=== PATIENT | female | born 1960 | race Caucasian/White ===

== ENCOUNTER 2016-12-04 09:24 | Inpatient (IN) ==
--- NOTE | 2016-12-04 09:27 | Emergency Department Note ---
Disposition Clinical Impression: CVA (cerebral vascular accident), Left-sided weakness Disposition: Admitted As Inpatient Condition: Good General Adult HPI - General Chief complaint: ED Neuro Symptoms/Deficit Stated complaint: neuro Time Seen by Provider: 12/04/16 09:26 - Related Data Home Medications Medication Instructions Recorded Confirmed Levothyroxine Sodium [Levo-T] 175 mcg PO DAILY 12/04/16 12/04/16 Losartan Potassium [Cozaar] 100 mg PO DAILY 12/04/16 12/04/16 lamoTRIgine [Lamictal] 100 mg PO QAM 12/04/16 12/04/16 lamoTRIgine [Lamictal] 200 mg PO HS 12/04/16 12/04/16 traZODone [TraZODone] 50 mg PO HS 12/04/16 12/04/16 Allergies Allergy/AdvReac Type Severity Reaction Status Date / Time No Known Allergies Allergy Verified 11/14/16 11:01 Past Medical History - Past Medical History Medical history: Reports: hypertension, thyroid disease Psychiatric history: Reports: anxiety, bipolar, depression - Social History Smoking Status: Current every day smoker Smokeless Tobacco Status: No Alcohol use: Reports: none Drug use: Reports: none Course Vital Signs Temperature 98.3 F 12/04/16 09:26 Pulse Rate 65 12/04/16 09:26 Respiratory Rate 18 12/04/16 09:26 Blood Pressure 136/114 12/04/16 09:26 O2 Sat by Pulse Oximetry 94 12/04/16 09:26 Temperature 98.3 F 12/04/16 15:03 Pulse Rate 65 12/04/16 15:03 Respiratory Rate 16 12/04/16 15:03 Blood Pressure 99/82 12/04/16 15:03 O2 Sat by Pulse Oximetry 98 12/04/16 17:43 Oxygen Delivery Oxygen Delivery Nasal Cannula Medical Decision Making - Lab Data Result diagrams: 12/04/16 09:47 12/04/16 09:47 Lab Results 12/04/16 12/04/16 12/04/16 Range/Units 09:29 09:47 09:47 WBC 8.1 (4.3-11.1) K/mcL RBC 4.49 (3.82-4.97) M/mcL Hgb 14.1 (11.5-15.4) g/dL Hct 43.5 (35.3-44.9) % MCV 96.9 (83.0-100.0) fL MCH 31.4 (28.0-33.3) pg MCHC 32.4 (31.6-35.5) g/dL RDW 12.2 (11.5-14.5) % Plt Count 292 (140-400) K/mcL MPV 9.9 (9.4-12.4) fL Immature Gran % 0.4 (0-4) % Seg Neutrophils % 61.2 % Lymphocytes % 31.3 % Monocytes % 5.2 % Eosinophils % 1.5 % Basophils % 0.4 % Neutrophils # 5.0 (1.6-8.9) K/mcL Lymphocytes # 2.5 (0.6-4.6) K/mcL Monocytes # 0.4 (0.0-1.3) K/mcL Eosinophils # 0.1 (0.0-0.6) K/mcL Basophils # 0.0 (0.0-0.2) K/mcL Sodium 138 (136-145) mEq/L Potassium 4.1 (3.5-4.5) mEq/L Chloride 105 (98-109) mEq/L Carbon Dioxide 27 (19-29) mEq/L BUN 7 (7-20) mg/dL Creatinine 0.99 (0.57-1.11) mg/dL Est GFR ( Amer) > 60 (> 60) Est GFR (Non-Af Amer) 58 L (> 60) BUN/Creatinine Ratio 7 (6-26) Glucose 97 (70-99) mg/dL POC Glucose 107 H (58-89) Calculated Osmolality 284 (280-300) Calcium 9.4 (8.6-10.8) mg/dL Troponin I (0-0.03) ng/mL 12/04/16 Range/Units 09:47 WBC (4.3-11.1) K/mcL RBC (3.82-4.97) M/mcL Hgb (11.5-15.4) g/dL Hct (35.3-44.9) % MCV (83.0-100.0) fL MCH (28.0-33.3) pg MCHC (31.6-35.5) g/dL RDW (11.5-14.5) % Plt Count (140-400) K/mcL MPV (9.4-12.4) fL Immature Gran % (0-4) % Seg Neutrophils % % Lymphocytes % % Monocytes % % Eosinophils % % Basophils % % Neutrophils # (1.6-8.9) K/mcL Lymphocytes # (0.6-4.6) K/mcL Monocytes # (0.0-1.3) K/mcL Eosinophils # (0.0-0.6) K/mcL Basophils # (0.0-0.2) K/mcL Sodium (136-145) mEq/L Potassium (3.5-4.5) mEq/L Chloride (98-109) mEq/L Carbon Dioxide (19-29) mEq/L BUN (7-20) mg/dL Creatinine (0.57-1.11) mg/dL Est GFR ( Amer) (> 60) Est GFR (Non-Af Amer) (> 60) BUN/Creatinine Ratio (6-26) Glucose (70-99) mg/dL POC Glucose (58-89) Calculated Osmolality (280-300) Calcium (8.6-10.8) mg/dL Troponin I 0.01 (0-0.03) ng/mL Attestation Statement - Attestation Attestation: I examined this patient and my medical decision-making was reviewed with the VEHICLE TRIMMER/PA/Advanced Practice Nurse/Resident Physician. I agree with the documented findings, disposition and treatment plan as described except to the extent set forth below. [id number] time provided Patient arrives by EMS from home. She states she began developing weakness approximately 10:00 AM yesterday which is 23 hours prior to arrival. She has fallen multiple times. She feels as if her face is droopy. The patient does have a noticeable left-sided facial droop and left-sided motor weakness on exam. Stroke alert not activated due to prolonged onset of symptoms
--- NOTE | 2016-12-04 09:53 | Emergency Department Note ---
Disposition Clinical Impression: Left-sided weakness CVA (cerebral vascular accident) Qualifiers: CVA mechanism: other Qualified Code(s): I63.8 - Other cerebral infarction Disposition: Admitted As Inpatient Condition: Good Forms: ED Satisfaction Letter General Adult HPI - General Chief complaint: ED Neuro Symptoms/Deficit Stated complaint: neuro Time Seen by Provider: 12/04/16 09:26 Source: patient Mode of arrival: EMS Limitations: no limitations Nursing Notes Reviewed: Yes Vital Signs Reviewed: Yes - History of Present Illness HPI Narrative: 56-year-old female who reports sudden onset of left-sided weakness and multiple falls beginning at 10 AM yesterday morning. She has no history of stroke or other neurologic conditions. She reports at least 3 falls onto her left side due to weakness in her left. She admits to one of those times hitting her head. Her main complaint is the left-sided weakness and also chronic left- sided hip pain. The hip pain is worse after the fall. She does have a diagnosis of chronic bursitis of the left hip. Her other medical problems include bipolar, hypothyroidism, asthma. She takes lamotrigine, Synthroid, losartan, trazodone. She is not on any anticoagulants or antiplatelet agents. She denies any cardiac history or palpitations. She does admit to a mild headache after falling and hitting her head a couple of hours ago. She refused to come to the emergency department previously but her daughter made her come Location: left, lower extremity Radiation: non-radiation Pain Severity: moderate Pain Scale: 8 Consistency: constant Improves with: nothing Worsens with: nothing Associated symptoms: Reports: denies other symptoms - Related Data Home Medications Medication Instructions Recorded Confirmed Levothyroxine Sodium [Levo-T] 175 mcg PO DAILY 12/04/16 12/04/16 Losartan Potassium [Cozaar] 100 mg PO DAILY 12/04/16 12/04/16 lamoTRIgine [Lamictal] 100 mg PO QA 12/04/16 12/04/16 lamoTRIgine [Lamictal] 200 mg PO HS 12/04/16 12/04/16 traZODone [TraZODone] 50 mg PO HS 12/04/16 12/04/16 Allergies Allergy/AdvReac Type Severity Reaction Status Date / Time No Known Allergies Allergy Verified 11/14/16 11:01 All systems ED: reviewed and negative except as stated. Constitutional: Denies: fever Eyes: Denies: vision change ENT ED: Denies: throat pain Cardiovascular: Denies: chest pain Respiratory: Denies: cough, dyspnea Gastrointestinal: Denies: abdominal pain Musculoskeletal: Denies: neck pain Integumentary: Denies: rash Neurological: Reports: headache Past Medical History - Past Medical History Medical history: Reports: hypertension, thyroid disease Psychiatric history: Reports: anxiety, bipolar, depression - Social History Smoking Status: Current every day smoker Smokeless Tobacco Status: No Alcohol use: Reports: none Drug use: Reports: none Physical Exam - General General appearance: alert, in no apparent distress - Head Head exam: atraumatic - Eye Eye exam: Present: normal appearance - ENT ENT exam: normal exam - Neck Neck exam: Present: normal inspection - Chest Chest inspection: Present: normal inspection - Respiratory Respiratory exam: Present: normal lung sounds bilaterally. Absent: respiratory distress - Cardiovascular Cardiovascular exam: Present: regular rate, normal rhythm - Abdominal Exam Abdominal exam: Present: soft, Non-Tender - Extremities Exam Extremities exam: Present: normal inspection - Neurological Exam Neurological exam: Present: alert, oriented X3, other (Left-sided facial droop with complete left-sided paresthesias. Left upper and left lower extremity both have significant weakness with minimal movement against gravity. No symptoms on the right side. No coughing or choking.) - Skin Skin exam: Present: warm, dry Course Course Narrative: She has a NIH of 6 on exam. With significant left-sided weakness and left- sided facial droop. I concern for a stroke. We will do a stroke workup in addition I will do a left hip radiograph due to worsening of chronic pain and left hip after a fall. She is otherwise well appearing and in no distress. She is able to handle her own secretions without any changes in her mentation. Accu-Cheks within normal range. Vital signs are otherwise stable. Concern for left basal ganglia acute infarction. Will admit and give asa Vital Signs Temperature 98.3 F 12/04/16 09:26 Pulse Rate 65 12/04/16 09:26 Respiratory Rate 18 12/04/16 09:26 Blood Pressure 136/114 12/04/16 09:26 O2 Sat by Pulse Oximetry 94 12/04/16 09:26 Temperature 98.3 F 12/04/16 09:26 Pulse Rate 65 12/04/16 09:26 Respiratory Rate 18 12/04/16 09:26 Blood Pressure 136/114 12/04/16 09:26 O2 Sat by Pulse Oximetry 94 12/04/16 09:26 Oxygen Delivery Oxygen Delivery Room Air Medical Decision Making - Medical Records Medical records reviewed: Yes I reviewed the patient's medical records. - Lab Data Lab results reviewed: Yes I reviewed the patient's lab results. Result diagrams: 12/04/16 09:47 Lab Results 12/04/16 12/04/16 Range/Units 09:29 09:47 WBC 8.1 (4.3-11.1) K/mcL RBC 4.49 (3.82-4.97) M/mcL Hgb 14.1 (11.5-15.4) g/dL Hct 43.5 (35.3-44.9) % MCV 96.9 (83.0-100.0) fL MCH 31.4 (28.0-33.3) pg MCHC 32.4 (31.6-35.5) g/dL RDW 12.2 (11.5-14.5) % Plt Count 292 (140-400) K/mcL MPV 9.9 (9.4-12.4) fL Immature Gran % 0.4 (0-4) % Seg Neutrophils % 61.2 % Lymphocytes % 31.3 % Monocytes % 5.2 % Eosinophils % 1.5 % Basophils % 0.4 % Neutrophils # 5.0 (1.6-8.9) K/mcL Lymphocytes # 2.5 (0.6-4.6) K/mcL Monocytes # 0.4 (0.0-1.3) K/mcL Eosinophils # 0.1 (0.0-0.6) K/mcL Basophils # 0.0 (0.0-0.2) K/mcL POC Glucose 107 H (58-89) - Radiology Data Radiology results reviewed: Yes I reviewed the patient's radiology results. - EKG Data EKG #1 EKG attestation: Yes I reviewed and interpreted this EKG. EKG shows normal: sinus rhythm Rate: normal Fenton/QRS: normal When compared to previous EKG there are: no significant changes Interpretation: no acute changes
[2016-12-04 10:16] LABS: Basophils % 0.4 %; Eosinophils # 0.1 K/mcL (0.0-0.6); Eosinophils % 1.5 %; Hematocrit 43.5 % (35.3-44.9); Hemoglobin 14.1 g/dL (11.5-15.4); Immature Granulocytes % 0.4 % (0-4); Lymphocytes # 2.5 K/mcL (0.6-4.6); Lymphocytes % 31.3 %; Mean Corpuscular HGB Conc 32.4 g/dL (31.6-35.5); Mean Corpuscular Hemoglobin 31.4 pg (28.0-33.3); Mean Corpuscular Volume 96.9 fL (83.0-100.0); Mean Platelet Volume 9.9 fL (9.4-12.4); Monocytes # 0.4 K/mcL (0.0-1.3); Monocytes % 5.2 %; Platelet Count 292 K/mcL (140-400); Red Blood Count 4.49 M/mcL (3.82-4.97); Red Cell Distribution Width 12.2 % (11.5-14.5); Segmented Neutrophils % 61.2 %
[2016-12-04] MEDS ORDERED: Aspirin 325 MG TABLET PO ONE (10:21)
[2016-12-04 10:28] LABS: BUN/Creatinine Ratio 7 (6-26); Blood Urea Nitrogen 7 mg/dL (7-20); Calcium 9.4 mg/dL (8.6-10.8); Carbon Dioxide 27 mEq/L (19-29); Chloride 105 mEq/L (98-109); Glucose 97 mg/dL (70-99); Osmolality,Calculated 284 (280-300); Potassium 4.1 mEq/L (3.5-4.5); Sodium 138 mEq/L (136-145); eGFR For African Americans > 60 (> 60); eGFR For Non-African Americans 58 (> 60)
[2016-12-04] MEDS ORDERED: Naloxone 0.4 MG/ML INJ IVP PRN (11:54)
--- NOTE | 2016-12-04 12:32 | Internal Med History&Physical ---
Date of Encounter: 12/04/16 Time of Encounter: 11:00 Assessment and Plan (1) CVA (cerebral vascular accident) Current visit: Yes Status: Acute 1 7 ounces of left-sided weakness and frequent falls starting yesterday at approximately 10 AM. Presented to the ER with obvious left-sided facial droop as well as left-sided upper/lower extremity weakness. CT of head did indicate possible acute subacute infarct of right Thalmus. Patient was given aspirin rectally, she failed her swallow evaluation. She is protecting her airway at this time. 2 we will obtain MRI/MRA of head and brain and neck with and without contrast 3 we will obtain carotid Dopplers 4 consult to neurology-spoke with Dr. Acosta who will see patient upon consult 5 continue with aspirin we will obtain lipid profile, as well as A1c. Initiate statin once patient is able to take orals 6 consult PT and OT speech 7 fall precautions 8 aspiration precautions Qualifiers: CVA mechanism: other Qualified Code(s): I63.8 - Other cerebral infarction (2) HTN (hypertension) Current visit: No Status: Chronic 1 presently controlled and we will hold antihypertensives for now due to patient 's nothing by mouth we will allow for permissive hypertension. Qualifiers: Hypertension type: essential hypertension Qualified Code(s): I10 - Essential (primary) hypertension (3) Bipolar 1 disorder Current visit: No Status: Chronic 1 we will resume bipolar medication, Lamictal and Prozac once cleared by speech therapy (4) DVT prophylaxis Current visit: Yes Status: Acute SCDs for now (5) Tobacco abuse Current visit: Yes Status: Chronic 1 encourage patient to stop smoking she voiced that she did not want to quit- nicotine patch for now Internal Medicine - H&P: HPI Chief complaint: Left-sided weakness frequent falls Admitted From: Emergency Dept Plans for Post Hospital Care: Home History of present illness: Ms. Varela is a 56 year old female past medical history of hypertension asthma thyroid disease bipolar DVT. According to family and patient, she has been experiencing frequent falls since yesterday morning at approximately 10 AM. Patient has been experiencing left-sided lower extremity weakness unable to stand feeling of dizziness in the room spinning when standing. She has had multiple falls where she would be sitting and fall forward without any attempts to break her fall. Patient admits that her left side had felt strange all day yesterday. Family have encouraged her to go to the emergency room at that time however she declined At approximately 4 AM today patient got up and was unable to support her weight and fell onto her left side. She does admit to some lightheadedness and dizziness. As the morning progressed she continued to experience left-sided weakness, she had a facial droop and frequent falls. She did have a fall in which she hit her head family encouraged her to go to the emergency room for evaluation. Upon presentation to the ER patient did have an obvious left-sided facial droop as well as left-sided upper arm weakness and lower extremity weakness. NIH score was 6. CT of head was obtained which did show low attenuation involving the anterior margin of the right thalamus possibly representing acute or subacute infarct. Patient was given aspirin. She has been admitted for further workup and evaluation. Presently the patient is alert appropriate she does follow simple commands. She has a left-sided facial droop. She is able to maintain her airway She is unable to lift her left arm without assistance left lower extremity weak 1/5 strength. Sensation is intact. She does have some difficulty recalling events of this morning. The family states that patient had an episode approximately 2 months ago that was similar she was taken to an outside facility which at that time her symptoms had resolved. However the family states that she continued to have issues with memory and recall after the episode Her lung sounds are clear heart sounds are regular S1-S2 with no rubs clicks gallops murmurs noted abdomen soft and nontender no lower extremity edema Presently she appears hemodynamically stable at this time I review this case with Dr. Garcia who agrees with plan Past Med Surg Social Fam HX - Past Medical History Medical history: hypertension, thyroid disease Psychiatric history: anxiety, bipolar, depression - Social History Smoking Status: Current every day smoker Smokeless Tobacco Status: No Alcohol use: none Drug use: none - Family History Mother Hx Family Cancer: Yes Internal Medicine - H&P: Meds Levothyroxine Sodium [Levo-T] 175 mcg PO DAILY 12/04/16 [History] Losartan Potassium [Cozaar] 100 mg PO DAILY 12/04/16 [History] lamoTRIgine [Lamictal] 100 mg PO QAM 12/04/16 [History] lamoTRIgine [Lamictal] 200 mg PO HS 12/04/16 [History] traZODone [TraZODone] 50 mg PO HS 12/04/16 [History] Allergies No Known Allergies Allergy (Verified 11/14/16 11:01) All Systems PM: A 10-system review of systems was performed and is negative for pertinent findings except as documented above in the HPI. - Constitutional Constitutional: weakness, no chills, no fever(s), no night sweats - EENT Nose, mouth and throat: no dysphagia, no nasal discharge, no neck pain, no sore throat - Cardiovascular Cardiovascular ROS IM: no chest pain, no diaphoresis, no dyspnea, no lightheadedness, no palpitations, no syncope - Respiratory Respiratory: no cough, no dyspnea, no wheezing, no excessive phlegm production - Gastrointestinal Gastrointestinal: no abdominal pain, no diarrhea, no hematemesis, no hematochezia, no melena, no nausea, no vomiting - Genitourinary Genitourinary: no change in urinary stream, no dysuria, no flank pain, no hematuria - Musculoskeletal Musculoskeletal ROS IM: no numbness, no tingling - Integumentary Integumentary IM: no rash, no unusual bruising - Neurological Neurological ROS: abnormal gait, dizziness, frequent falls, weakness - Hematologic/Lymphatic Hematologic/Lymphatic: no easy bruising - Constitutional Vitals: Temp Pulse Resp BP Pulse Ox 98.3 F 56 16 115/59 91 12/04/16 09:26 12/04/16 10:32 12/04/16 10:32 12/04/16 10:32 12/04/16 10:32 General appearance: Present: A&O X 3, answers questions appropriately - Head Head exam: Present: atraumatic, normocephalic - Eye Eye exam: Present: PERRL, conjuntiva pink, sclera anicteric Pupils: Present: PERRL - Neck Neck exam general surgery: Present: supple, trachea midline. Absent: lymphadenopathy - Respiratory Respiratory exam: Present: CTAB. Absent: accessory muscle use, rales, rhonchi, wheezes - Cardiovascular Cardiovascular exam: Present: RRR, +S1, +S2. Absent: diastolic murmur, gallop, rubs, systolic murmur - GI/Abdominal GI/Abdominal exam: Present: normal bowel sounds, soft, no peritoneal signs. Absent: distended, tenderness - Extremities Exam Extremities exam: Present: warm, radial pulses palpable and symetrical. Absent : calf tenderness, cyanotic, pedal edema - Neurological Exam Neurological exam: Present: alert, CN II-XII intact, oriented X3, facial droop. Absent: pronater drift, speech deficit Additional comments: Left sided weakness - Skin Skin exam: Present: dry, intact Internal Med - H&P Results - Labs CBC & Chem 7: 12/04/16 09:47 12/04/16 09:47 - EKG Data EKG shows normal: sinus rhythm Rate: bradycardia - Diagnostic Studies Other Images Additional comments: Chest X-Ray 12/04/16 09:37 IMPRESSION: No acute cardiopulmonary process identified. D/ / Bryce Villalobos MD / Bryce Villalobos MD Interpreting Provider: Bryce Villalobos MD Head CT 12/04/16 09:37 IMPRESSION: 1. Focal area of low attenuation involving the anterior margin of the right thalamus which may represent an acute to subacute infarct. These findings were discussed with Dr Palm at 10:16 a.m. 12/04/2016. I would recommend MRI for further evaluation. 2. Chronic small vessel ischemic disease with old right occipital lobe infarct. D/ / Mitchell Cruz MD / Mitchell Cruz MD Interpreting Provider: Mitchell Cruz MD Pelvis X-Ray 12/04/16 09:39 IMPRESSION: No acute osseous abnormality. D/ / 12/04/2016 10:52:13 Ray Parsons MD / Merari Chawla Interpreting Provider: Ray Parsons MD
[2016-12-04] MEDS: Nicotine 21 MG PATCH.TD24 TD SCH (18:05)
--- NOTE | 2016-12-04 19:57 | Neurology - Consult Note ---
Date of Encounter: 12/04/16 Time of Encounter: 19:51 Assessment and Plan (1) CVA (cerebral vascular accident) Current Visit: Yes Status: Acute patient developed acute cerebral infarct involving multiple arterial distribution on both size of the brain, concerning for embolic phenomenon. this is a young patient and she does have history of HTN and obesity and VLAD but no past history of atrial fibrillation or other cardiac diseases that can be causing embolic stroke. Will need to start her on Heparin drip, stroke protocol, no bolus, target PTT 60 -90, while stroke work up is being completed. Will need TOÑO due to findings of positive embolic stroke. Will do hypercoagulable state work up as well. PT/OT, DVT prophylaxis, Contineu Aspirin 300mg daily. Qualifiers: CVA mechanism: embolism Precerebral and cerebral artery: unspecified cerebral artery Qualified Code(s): I63.40 - Cerebral infarction due to embolism of unspecified cerebral artery History of Present Illness Chief complaint: left sided weakness HPI: Ms. Varela is a 56 year old female with PMH significant for HTN, bipolar disorder in remission, hypothryoidism and obesity who developed acute onset of left sided weakness yesterday at 10am. She did not seek medical attention until today. Since yesterday, she tried to get up and had two falls, landed on the left hip and caused some hip pain. No speech difficulty. Mentioned that about 1-2 months ago she developed uncontrollable arm lasting few hours in duration. She went to outside hospital and they discharged her home. MR/MR head/brain wo con IMPRESSION: 1. Acute ischemic infarcts involving the right thalamus, right splenium of the corpus callosum, and mesial parietal occipital cortex. 2. No intracranial hemorrhage or mass effect. 3. Marked attenuation of the mid to distal posterior cerebral arteries may reflect high-grade stenosis or acute thrombosis. 4. Mild bilateral proximal internal carotid artery stenosis. 5. No vertebral artery stenosis. 6. Remote lacunar infarcts in the right thalamus, body of the corpus callosum, and right occipital lobe. 7. Bilateral mastoid effusions. Review of the images showed multiple small acute infarct involving not only above mentioned territory but also left occipital region and left frontal cortex as well. Will notify radiology for possible correction. Past Med Surg Social Fam HX - Past Medical History Medical history: hypertension, thyroid disease Psychiatric history: anxiety, bipolar, depression - Social History Smoking Status: Current every day smoker Smokeless Tobacco Status: No Alcohol use: none Drug use: none - Family History Mother Hx Family Cancer: Yes Medications and Allergies Levothyroxine Sodium [Levo-T] 175 mcg PO DAILY 12/04/16 [History] Losartan Potassium [Cozaar] 100 mg PO DAILY 12/04/16 [History] lamoTRIgine [Lamictal] 100 mg PO QAM 12/04/16 [History] lamoTRIgine [Lamictal] 200 mg PO HS 12/04/16 [History] traZODone [TraZODone] 50 mg PO HS 12/04/16 [History] Allergies No Known Allergies Allergy (Verified 11/14/16 11:01) All Systems: A 10-system review of systems was performed and is negative for pertinent findings except as documented above in the HPI. Physical Examination - Vital Signs Vital Signs: Initial Vital Signs Temp Pulse Resp BP Pulse Ox 98.3 F 65 18 136/114 94 12/04/16 09:26 12/04/16 09:26 12/04/16 09:26 12/04/16 09:26 12/04/16 09:26 - Constitutional General appearance: comfortable - Neurologic Sensorimotor examination: other (Grossly intact) Motor examination - right side: 5/5: deltoids, biceps, triceps, wrist flexion, wrist extension, mental health associate, hip flexors, tibialis Anterior, quadriceps, toe extension (EHL), plantarflexion Motor examination - left side: 4/5: deltoids, biceps, triceps, wrist flexion, wrist extension, hip flexors, mental health associate, quadriceps, tibialis Anterior, toe extension (EHL), plantarflexion Detailed sensory examination: other (Grossly intact) Posture: other (None) Reflex and gait examination: other (Reflexes reduced to left side both upper and lower extremites) Mental Status Examination: awake, alert, oriented to person, oriented to place, oriented to time, follows commands appropriately, answers questions appropriately, no agnosia, no aphasia, no aproxia Results - Laboratory Findings CBC and BMP: 12/04/16 09:47 12/04/16 09:47 Abnormal lab findings: Abnormal lab results Est GFR (Non-Af Amer) 58 (> 60) L 12/04/16 09:47 POC Glucose 107 (58-89) H 12/04/16 09:29 Consult Discharge Plan - Plan Referrals: Alton Sellers MD [Primary Care Provider] -
[2016-12-04] MEDS ORDERED: *HR* Heparin 5,000 UNIT/ML VIAL IVP PRN ×2 (20:56)
[2016-12-04 21:31] LABS: Hematocrit 44.5 % (35.3-44.9); Hemoglobin 14.4 g/dL (11.5-15.4); Mean Corpuscular HGB Conc 32.4 g/dL (31.6-35.5); Mean Corpuscular Hemoglobin 31.4 pg (28.0-33.3); Mean Corpuscular Volume 97.2 fL (83.0-100.0); Mean Platelet Volume 9.6 fL (9.4-12.4); Platelet Count 262 K/mcL (140-400); Red Blood Count 4.58 M/mcL (3.82-4.97)
[2016-12-04 21:33] LABS: INR 1.1; Prothrombin Time 11.4 Seconds (9.4-12.1)
[2016-12-04 21:36] LABS: Activated Partial Thrombo Time 30.2 Seconds (26.0-36.0)
[2016-12-04] MEDS: Heparin 25,000 UNIT/500 ML D5W 25,000 UNIT/500 ML MLS IVC SCH (22:25)
[2016-12-04] MEDS: lamoTRIgine 100 MG TABLET PO SCH (23:27)
[2016-12-05] MEDS ORDERED: *HR* Morphine 2 MG/ML SYRINGE IVP PRN (00:45)
[2016-12-05] MEDS: *HR* HYDROcodone/Acet 5/325 mg TABLET PO PRN ×3 (01:07→20:05)
[2016-12-05 06:29] LABS: Basophils # 0.1 K/mcL (0.0-0.2); Basophils % 0.5 %; Eosinophils # 0.1 K/mcL (0.0-0.6); Eosinophils % 1.1 %; Hematocrit 43.2 % (35.3-44.9); Hemoglobin 14.2 g/dL (11.5-15.4); Immature Granulocytes % 0.4 % (0-4); Lymphocytes # 2.9 K/mcL (0.6-4.6); Lymphocytes % 29.5 %; Mean Corpuscular HGB Conc 32.9 g/dL (31.6-35.5); Mean Corpuscular Volume 97.3 fL (83.0-100.0); Mean Platelet Volume 10.5 fL (9.4-12.4); Monocytes # 0.4 K/mcL (0.0-1.3); Monocytes % 4.4 %; Neutrophils # 6.2 K/mcL (1.6-8.9); Platelet Count 263 K/mcL (140-400); Red Blood Count 4.44 M/mcL (3.82-4.97); Segmented Neutrophils % 64.1 %
[2016-12-05 06:34] LABS: BUN/Creatinine Ratio 8 (6-26); Blood Urea Nitrogen 7 mg/dL (7-20); Calcium 9.3 mg/dL (8.6-10.8); Carbon Dioxide 26 mEq/L (19-29); Chloride 105 mEq/L (98-109); Chol/HDL Ratio 7.1 (0-4.9); Cholesterol 214 mg/dL (< 200); Glucose 93 mg/dL (70-99); HDL Cholesterol 30 mg/dL (40-59); LDL Cholesterol,Calculated 149 mg/dL (0-99); Osmolality,Calculated 286 (280-300); Potassium 3.9 mEq/L (3.5-4.5); Sodium 139 mEq/L (136-145); Triglycerides 175 mg/dL (< 150); eGFR For African Americans > 60 (> 60); eGFR For Non-African Americans > 60 (> 60)
[2016-12-05 06:45] LABS: Hemoglobin A1C 4.9 %
[2016-12-05] MEDS ORDERED: Pantoprazole 40 MG VIAL IVP SCH (09:00)
--- NOTE | 2016-12-05 09:55 | Event Note ---
Date of Encounter: 12/04/16 Time of Encounter: 21:00 Dr Johansen notified me that Dr Mendoza had seen patient and advised that patient be initiated Heparin drip dt concern for embolic phenomenon. He also request cardiology consult . Heparin started with no bolus goal INR 60-90 continue stroke protocol. Reviewed with DR Johansen as well as pharmacy concerning heparin INR goal.
--- NOTE | 2016-12-05 12:00 | Electrocardiograph Report ---
[place] [id number] Test Date: 2016-12-04 Pat Name: Pete Varela Department: 102 Room: 2NE22 Gender: F Pacs Administrator: Hai : 1960 Requested By: Jamey Membreno Order Number: [id number] Reading MD: Lev Weeks MD Measurements Intervals [place] Rate: 57 P: 29 [place]: 168 QRS: 38 QRSD: 98 T: 26 QT: 422 QTc: 417 Interpretive Statements SINUS BRADYCARDIA Electronically Signed On 12-05-2016 11:58:52 EDT by Lev Weeks MD
--- NOTE | 2016-12-05 12:57 | Neurology Progress Note ---
Date of Encounter: 12/05/16 Time of Encounter: 12:55 Assessment and Plan (1) CVA (cerebral vascular accident) Current Visit: Yes Status: Acute Await stroke work up including TOÑO via cardiology, telemetry, DTV prophylaxis. Continue Aspirin 300mg daily. The presence of mid to distal posterior cerebral artery stenosis or occlusion is of unclear clinical significance and is likely unrelated to current stroke incidence. If TOÑO returns negative for source of emboli then patient may benefit from residential rhythm monitoring. Will defer to cardiology for further recommendation in that regard. Qualifiers: CVA mechanism: embolism Precerebral and cerebral artery: unspecified cerebral artery Qualified Code(s): I63.40 - Cerebral infarction due to embolism of unspecified cerebral artery Subjective Principal diagnosis: CVA Interval history: Patient seen and examined, she is feeling a little better in terms of her left sided weakness, Wide awake and feeling hungry and refuses what recommended by swallow therapist. Is on Heparin drip per stroke protocol due to findings of embolic stroke. No new neurological complaints Objective - Constitutional Vitals: Temp Pulse Resp BP Pulse Ox 98.7 F 67 16 117/83 96 12/05/16 11:50 12/05/16 11:50 12/05/16 11:50 12/05/16 11:50 12/05/16 11:50 - Neurological Exam Sensorimotor examination: Present: other (Grossly intact) Motor Examination: Present: other (Mild weakness to the left arm and leg) Motor examination - right side: 5/5: deltoids, biceps, triceps, wrist flexion, wrist extension, manager outpatient, hip flexors, tibialis Anterior, quadriceps, toe extension (EHL), plantarflexion Motor examination - left side: 4/5: deltoids, biceps, triceps, wrist flexion, wrist extension, hip flexors, manager outpatient, quadriceps, tibialis Anterior, toe extension (EHL), plantarflexion Sensation intact: Present: other (Grossly intact) Posture: Present: other (None) Reflex and gait examination: other (Reflexes reduced to left side both upper and lower extremites) Reflexes: Biceps: 1+, Triceps: 1+, Brachioradialis: 1+, Patella: 1+, Achilles: 1 + Mental Status Examination: Present: awake, alert, oriented to person, oriented to place, oriented to time, follows commands appropriately, answers questions appropriately, no agnosia, no aphasia, no aproxia Results - Laboratory Findings CBC and BMP: 12/05/16 05:33 12/05/16 05:33 Abnormal lab findings: Abnormal lab results APTT 52.6 Seconds (26.0-36.0) H D 12/05/16 05:33 POC Glucose 107 (58-89) H 12/04/16 09:29 Triglycerides 175 mg/dL (< 150) H 12/05/16 05:33 Cholesterol 214 mg/dL (< 200) H 12/05/16 05:33 LDL Cholesterol, Calc 149 mg/dL (0-99) H 12/05/16 05:33 VLDL Cholesterol, Calc 35 mg/dL (< 31) H 12/05/16 05:33 HDL Cholesterol 30 mg/dL (40-59) L 12/05/16 05:33 Cholesterol/HDL Ratio 7.1 (0-4.9) H 12/05/16 05:33 Consult Discharge Plan - Plan Referrals: Alton Sellers MD [Primary Care Provider] -
[2016-12-05 13:04] LABS: Activated Partial Thrombo Time 172.7 Seconds (26.0-36.0)
[2016-12-05] MEDS: Nicotine 21 MG PATCH.TD24 TD SCH (13:24)
[2016-12-05] MEDS: lamoTRIgine 25 MG TABLET PO SCH (13:28)
[2016-12-05 13:35] LABS: Heparin anti-factor XA UFH 0.93 IU/mL (0.30-0.70)
--- NOTE | 2016-12-05 13:39 | Internal Med Progress Note ---
Date of Encounter: 12/05/16 Time of Encounter: 11:00 - Assessment and plan (1) CVA (cerebral vascular accident) Current Visit: Yes Status: Acute Assessment and plan: Patient presents with acute CVA. MRI reveals multiple areas of infarcts. Case discussed with neurology and cardiology. Neurology recommends transesophageal echocardiogram to determine if there is a cardiac source of emboli due to the multiple was also affected by emboli. The patient did not have a good quality echocardiogram. Cardiology recommended a repeat. Repeat echocardiogram has been ordered. Cardiology consult has been requested. We will follow-up in cardiology request regarding the need for transesophageal echo based on the quality of images on the repeat echocardiogram. Patient has passed swallow eval. Continue aspirin, statin. Physical therapy and occupational therapy recommendations will be followed up. Likely discharge to rehabilitation. Patient is height is due to acute stroke and risk of recurrent stroke and the need for further workup which may include transesophageal echocardiogram to be performed as an inpatient stay. Qualifiers: CVA mechanism: embolism Precerebral and cerebral artery: middle cerebral artery Laterality of affected vessel: right Qualified Code(s): I63.411 - Cerebral infarction due to embolism of right middle cerebral artery (2) Tobacco abuse Current Visit: Yes Status: Chronic Assessment and plan: Patient counseled regarding cessation. However, she is not willing to quit. (3) HTN (hypertension) Current Visit: Yes Status: Chronic Assessment and plan: Allow permissive hypertension due to acute CVA. Qualifiers: Hypertension type: essential hypertension Qualified Code(s): I10 - Essential (primary) hypertension (4) Bipolar 1 disorder Current Visit: No Status: Chronic - Subjective Interval history: Patient states that she has pain in her hip and her back from lying in the bed all day. She wants to be helped out of bed and into the chair. She continues to report weakness in her left arm and left leg. However, she states that the weakness in her left arm has improved. Denies any difficulty swallowing and is asking for some solid food. - Constitutional Vitals: Temp Pulse Resp BP Pulse Ox 98.7 F 67 16 117/83 96 12/05/16 11:50 12/05/16 11:50 12/05/16 11:50 12/05/16 11:50 12/05/16 11:50 General appearance: Present: A&O X 3, answers questions appropriately Exam: Gen.: Lying in bed. No acute distress. Chest: Clear to auscultation bilaterally. No adventitious sounds present. CVS: First and second heart sounds present. No murmurs, rubs or gallops. Abdomen: Soft, nontender, obese. Bowel sounds present. No hepatosplenomegaly. Skin: No decubitus ulcers appreciated. BAR WELDER: Left upper extremity strength 4/5. Left lower extremity strength 3/5. Right upper and lower extremity strength of 5/5. Facial deviation to the right. Internal Medicine: Result - Labs CBC & Chem 7: 12/05/16 05:33 12/05/16 05:33 Labs: Short CBC 12/04/16 12/05/16 Range/Units 21:10 05:33 WBC 8.7 9.8 (4.3-11.1) K/mcL Hgb 14.4 14.2 (11.5-15.4) g/dL Hct 44.5 43.2 (35.3-44.9) % Plt Count 262 263 (140-400) K/mcL Neutrophils # 6.2 (1.6-8.9) K/mcL BMP 12/05/16 05:33 Sodium 139 Potassium 3.9 Chloride 105 Carbon Dioxide 26 BUN 7 Creatinine 0.91 Glucose 93 Calcium 9.3 Cardiac Enzymes 12/04/16 12/04/16 Range/Units 17:20 21:10 Troponin I 0.00 0.00 (0-0.03) ng/mL - ABG Interpretation ABG results: PT/INR, D-dimer PT 11.4 Seconds (9.4-12.1) 12/04/16 21:10 - Impressions Impressions Brain MRI 12/04/16 12:17 IMPRESSION: 1. Acute ischemic infarcts involving the right thalamus, right splenium of the corpus callosum, and mesial parietal occipital cortex. 2. No intracranial hemorrhage or mass effect. 3. Marked attenuation of the mid to distal posterior cerebral arteries may reflect high-grade stenosis or acute thrombosis. 4. Mild bilateral proximal internal carotid artery stenosis. 5. No vertebral artery stenosis. 6. Remote lacunar infarcts in the right thalamus, body of the corpus callosum, and right occipital lobe. 7. Bilateral mastoid effusions. D/ / Raji Diaz MD / Raji Diaz MD Interpreting Provider: Raji Diaz MD Head MRA 12/04/16 12:17 IMPRESSION: 1. Acute ischemic infarcts involving the right thalamus, right splenium of the corpus callosum, and mesial parietal occipital cortex. 2. No intracranial hemorrhage or mass effect. 3. Marked attenuation of the mid to distal posterior cerebral arteries may reflect high-grade stenosis or acute thrombosis. 4. Mild bilateral proximal internal carotid artery stenosis. 5. No vertebral artery stenosis. 6. Remote lacunar infarcts in the right thalamus, body of the corpus callosum, and right occipital lobe. 7. Bilateral mastoid effusions. D/ / Raji Diaz MD / Raji Diaz MD Interpreting Provider: Raji Diaz MD Neck MRA 12/04/16 12:17 IMPRESSION: 1. Acute ischemic infarcts involving the right thalamus, right splenium of the corpus callosum, and mesial parietal occipital cortex. 2. No intracranial hemorrhage or mass effect. 3. Marked attenuation of the mid to distal posterior cerebral arteries may reflect high-grade stenosis or acute thrombosis. 4. Mild bilateral proximal internal carotid artery stenosis. 5. No vertebral artery stenosis. 6. Remote lacunar infarcts in the right thalamus, body of the corpus callosum, and right occipital lobe. 7. Bilateral mastoid effusions. D/ / Raji Diaz MD / Raji Diaz MD Interpreting Provider: Raji Diaz MD Consult Discharge Plan - Plan Referrals: Alton Sellers MD [Primary Care Provider] -
[2016-12-05] MEDS ORDERED: Acetaminophen 325 MG TABLET PO PRN (13:46)
--- NOTE | 2016-12-05 14:29 | Cardiology Consult Note ---
Date of Encounter: 12/05/16 Time of Encounter: 13:30 Assessment and Plan (1) CVA (cerebral vascular accident) Current Visit: Yes Status: Acute Per cardiology: -CVA noted. -Being followed by neurology. -Patient denies syncope, near syncope. -Denies palpitations, fluttering, or heart racing. -Denies history of atrial fibrillation, heart arrythmia. -Echo 12/04/16 with LVEF 55-60%, no evidence of significant valvular dysfunction , all visualized cervantes with normal motion. This study was incomplete due to patient moving around. -I spoke with patient who stated she does not remember moving during echo. Patient states she feels she can complete echo now. -Repeat full echocardiogram ordered per primary service. -ECG sinus bradycardia, -Telemetry reviewed with no evidence of atrial fibrillation/flutter noted. -PLan for TOÑO pending results of repear echocardiogram. -will make patient NPO after midnight. Patient states understanding. Qualifiers: CVA mechanism: embolism Precerebral and cerebral artery: middle cerebral artery Laterality of affected vessel: right Qualified Code(s): I63.411 - Cerebral infarction due to embolism of right middle cerebral artery (2) HTN (hypertension) Current Visit: Yes Status: Chronic Per cardiology: -KNown HTN. -Was on ARB in outpateint setting. -States BPS at home 140s systolic. -Will continue to monitor. Qualifiers: Hypertension type: essential hypertension Qualified Code(s): I10 - Essential (primary) hypertension (3) Tobacco abuse Current Visit: Yes Status: Chronic Per cardiology: -KNown tobacco abuse with greater than 1 pack per day. -I spent 3 minutes reviewing smoking cessation education with patient. Discussion w patient/family: The assessment and plan as outlined above was discussed with the patient and/or family members who expressed understanding and agreement. All questions were answered. Thank you for involving us in the care of your patient. Please call with any questions. Discussed and reviewed with . History of Present Illness Consult date: 12/05/16 Requesting physician: Jamey Membreno Consult reason: multivessel CVA, concern for cardiac emboli, TOÑO Chief complaint: falling, left sided weakness. History of present illness: Ms. Varela is a 56 year old female with a relevant past medical history of HTN , hyperlipidemia, obesity, and smoking. Patient states 2 days ago she was sitting in a chair, when she fell forward and hit the floor. Patient states she did not lose consciousness and did not feel like she was going to pass out. Patient states yesterday, she fell two more times. Patient presented to [facility] after insistence from family. Patient noted to have acute CVA. Cardiology has been consulted. Patient denies history of CVA. Patient denies sycnope or near syncope. Patient denies palpitations, fluttering, or heart racing. Patient states BPs at home 140s systolic. Past Med Surg Social Fam HX - Past Medical History Attestation: Yes The following information was validated with the patient. Source: patient, old records reviewed, obtained from family Medical history: hypertension, thyroid disease Psychiatric history: anxiety, bipolar, depression - Social History Smoking Status: Current every day smoker Smokeless Tobacco Status: No Alcohol use: none Drug use: none - Family History Mother Hx Family Cancer: Yes Medications and Allergies Levothyroxine Sodium [Levo-T] 175 mcg PO DAILY 12/04/16 [History] Losartan Potassium [Cozaar] 100 mg PO DAILY 12/04/16 [History] lamoTRIgine [Lamictal] 100 mg PO QAM 12/04/16 [History] lamoTRIgine [Lamictal] 200 mg PO HS 12/04/16 [History] traZODone [TraZODone] 50 mg PO HS 12/04/16 [History] Allergies No Known Allergies Allergy (Verified 11/14/16 11:01) All Systems Review: A 10-system review of systems was performed and is negative for pertinent findings except as documented above in the HPI. - Constitutional Constitutional: frequent falls - Cardiovascular Cardiovascular: as per HPI Physical Examination Vital Signs, Last 4 Hours Temp Pulse Resp BP Pulse Ox 12/05/16 11:50 98.7 F 67 16 117/83 96 General: Conversant, No Apparent Distress HEENT: Atraumatic, Normocephaly, Mucus Membranes Moist Neck: No JVD, Normal carotid pulses Cardiac: Reg Rate and Rhythm, Normal S1 and S2, No Murmur Lungs: Normal Breath Sounds, No Wheeze, Rales, Rhonchi Neuro: Alert and responsive, No focal deficits noted Abdomen: Soft, Non-Tender Skin: No rashes noted on visualized skin Musculoskeletal: No Chest Wall Tenderness Extremities: No Clubbing, No Cyanosis, No Edema, Normal Pulses, Other (Left sided weakness noted. ) Results 12/05/16 05:33 12/05/16 05:33 Lab Results Impressions Pelvis X-Ray 12/04/16 09:39 IMPRESSION: No acute osseous abnormality. D/ / 12/04/2016 10:52:13 Ray Parsons MD / Merari Chawla Interpreting Provider: Ray Parsons MD Brain MRI 12/04/16 12:17 IMPRESSION: 1. Acute ischemic infarcts involving the right thalamus, right splenium of the corpus callosum, and mesial parietal occipital cortex. 2. No intracranial hemorrhage or mass effect. 3. Marked attenuation of the mid to distal posterior cerebral arteries may reflect high-grade stenosis or acute thrombosis. 4. Mild bilateral proximal internal carotid artery stenosis. 5. No vertebral artery stenosis. 6. Remote lacunar infarcts in the right thalamus, body of the corpus callosum, and right occipital lobe. 7. Bilateral mastoid effusions. D/ / Raji Diaz MD / Raji Diaz MD Interpreting Provider: Raji Diaz MD Head MRA 12/04/16 12:17 IMPRESSION: 1. Acute ischemic infarcts involving the right thalamus, right splenium of the corpus callosum, and mesial parietal occipital cortex. 2. No intracranial hemorrhage or mass effect. 3. Marked attenuation of the mid to distal posterior cerebral arteries may reflect high-grade stenosis or acute thrombosis. 4. Mild bilateral proximal internal carotid artery stenosis. 5. No vertebral artery stenosis. 6. Remote lacunar infarcts in the right thalamus, body of the corpus callosum, and right occipital lobe. 7. Bilateral mastoid effusions. D/ / Raji Diaz MD / Raji Diaz MD Interpreting Provider: Raji Diaz MD Neck MRA 07/12/17 12:17 IMPRESSION: 1. Acute ischemic infarcts involving the right thalamus, right splenium of the corpus callosum, and mesial parietal occipital cortex. 2. No intracranial hemorrhage or mass effect. 3. Marked attenuation of the mid to distal posterior cerebral arteries may reflect high-grade stenosis or acute thrombosis. 4. Mild bilateral proximal internal carotid artery stenosis. 5. No vertebral artery stenosis. 6. Remote lacunar infarcts in the right thalamus, body of the corpus callosum, and right occipital lobe. 7. Bilateral mastoid effusions. D/ / Raji Diaz MD / Raji Diaz MD Interpreting Provider: Raji Diaz MD Active Medications Acetaminophen (Tylenol) 650 mg PO Q6HR PRN PRN Reason: Mild Pain Stop: 06/06/17 13:47 Hydrocodone Bitart/Acetaminophen ([place] 5-325 Mg) 1 tab PO Q6HR PRN PRN Reason: Severe Pain Stop: 06/06/17 00:45 Aspirin (Aspirin) 325 mg PO DAILY [facility] Stop: 06/06/17 13:31 Atorvastatin Calcium (Lipitor) 80 mg PO HS ANGIE Stop: 06/06/17 21:01 Heparin Sodium (Porcine) (Heparin) 7,100 unit 70 unit/kg (7100 unit) IVP Q6HR PRN PRN Reason: SEE COMMENTS Stop: 06/05/17 20:57 Heparin Sodium (Porcine) (Heparin) 3,500 unit 35 unit/kg (3500 unit) IVP Q6H PRN PRN Reason: SEE COMMENTS Stop: 06/05/17 20:57 Last Admin: 12/05/16 06:42 Dose: 3,500 unit Heparin Sodium/Dextrose (Heparin 25,000 Unit/500 Ml D5w) 25,000 unit in 500 mls @ 28.378 mls/hr IVC .[id number] ANGIE; 14 UNIT/KG/HR PRN Reason: Protocol Stop: 06/05/17 21:01 Last Titration: 12/05/16 06:38 Dose: 16 unit/kg/hr, 32.432 mls/hr Lamotrigine (Lamictal) 100 mg PO HS ANGIE Stop: 06/05/17 23:31 Last Admin: 12/04/16 23:27 Dose: 100 mg Lamotrigine (Lamictal) 50 mg PO DAILY [facility] Stop: 06/06/17 09:01 Last Admin: 12/05/16 13:28 Dose: 50 mg Levothyroxine Sodium (Synthroid) 175 mcg PO 0600 [facility] Stop: 06/06/17 09:01 Last Admin: 12/05/16 13:26 Dose: 175 mcg Naloxone HCl (Narcan) 0.4 mg IVP Q2MIN PRN PRN Reason: Opioid Reversal Stop: 06/05/17 11:55 Nicotine (Nicoderm) 21 mg TD DAILY ANGIE PRN Reason: Protocol Stop: 06/05/17 12:31 Last Admin: 12/05/16 13:24 Dose: 21 mg Laboratory Tests 12/04/16 12/04/16 12/04/16 09:47 17:20 21:10 Hgb Potassium Creatinine Troponin I 0.01 0.00 0.00 Triglycerides Cholesterol LDL Cholesterol, Calc HDL Cholesterol 12/05/16 12/05/16 05:33 05:33 Hgb 14.2 Potassium 3.9 Creatinine 0.91 Troponin I Triglycerides 175 H Cholesterol 214 H LDL Cholesterol, Calc 149 H HDL Cholesterol 30 L - Imaging and Cardiology Chest Xray: report reviewed Echo: pending, report reviewed Other Results: CT head, MRI head report reviewed. - EKG Interpretation EKG results cardiology: personally reviewed (ECG reviewed with sinus bradycardia , HR 57.), other (Telemetry reviewed with average HR 63, sinus rhythm. PACs noted.) Consult Discharge Plan - Plan Referrals: Alton Sellers MD [Primary Care Provider] -
[2016-12-05] MEDS: Aspirin 325 MG TABLET PO SCH (15:03)
[2016-12-05] MEDS: Heparin 25,000 UNIT/500 ML D5W 25,000 UNIT/500 ML MLS IVC SCH (16:12)
--- NOTE | 2016-12-05 17:01 | Carotid Imaging Report ---
Carotid Duplex Patient Name:Pete Varela Order Number:[id number] Procedure Date:12/04/2016 Date:1960ge:56 yrs Gender:Female Rt.BP:117 / 56 mmHgHeart Rate: Location:[facility] Room #: [place] Machine Tender:Fang Queen, ASHLEY Referring MD:Johana Zimmer CNP master pilot:Alton Sellers MD Reading MD:Tim Hand MD Primary Indications:Left Sided Weakness Risk Factors Yes/No Hypertension Yes Smoking Current Yes Impressions: The bilateral carotid arteries are normal throughout. Recommendations: After imaging the patient returned to their room. Findings Carotid Duplex: Right: There is antegrade spectral Doppler flow patterns in the right vertebral artery. Left: There is antegrade spectral Doppler flow patterns in the left vertebral artery. Prior Study: No prior study available for comparison. Carotid Results Right PSV EDV Assessment Proximal CCA 110 18 Mid CCA 106 29 Distal CCA 96 26 Bifurcation 85 25 Proximal ICA 87 26 Mid ICA 103 40 Distal ICA 96 37 ECA 63 12 Vertebral Artery 50 14 Antegrade Flow Left PSV EDV Assessment Proximal CCA 119 34 Mid CCA 92 34 Distal CCA 109 36 Bifurcation 67 22 Proximal ICA 88 32 Mid ICA 126 50 Distal ICA 130 62 ECA 77 15 Vertebral Artery 49 18 Antegrade Flow Ratio's Right ICA/CCA Ratio: 0.97 ICA/CCA Values: 103/106 Left ICA/CCA Ratio: 1.03 ICA/CCA Values: 130/126 Updated by Tim Hand MD on 12/05/2016 4:55:25 PM electronically signed on 12/05/2016 4:55:39 PM with status of Final
[2016-12-05] MEDS: lamoTRIgine 100 MG TABLET PO SCH (20:05)
[2016-12-06] MEDS: *HR* HYDROcodone/Acet 5/325 mg TABLET PO PRN ×2 (03:31→15:09)
[2016-12-06] MEDS: Aspirin 325 MG TABLET PO SCH (07:29)
[2016-12-06] MEDS: Nicotine 21 MG PATCH.TD24 TD SCH (07:29)
[2016-12-06] MEDS: lamoTRIgine 25 MG TABLET PO SCH (07:29)
--- NOTE | 2016-12-06 10:23 | Event Note ---
Date of Encounter: 12/06/16 Time of Encounter: 08:00 - Cardiology Event Note Patient scheduled for TOÑO today. Risks versus benefits of TOÑO explained to patient. Patient states understanding and agrees to proceed with TOÑO. Further cardiology recommendations pending TOÑO.
[2016-12-06] MEDS ORDERED: Tetracaine/Benzocaine/Butamben 200MG/SPRAY (100SPY/BOT) MM ONE (10:28)
[2016-12-06] MEDS ORDERED: 0.9 % Sodium Chloride 500 ML IVC ONE (10:28)
[2016-12-06] MEDS: *HR* FentaNYL (PF) 100 MCG/2 ML VIAL IVP PRN ×2 (11:30→11:35)
[2016-12-06] MEDS: *HR* Midazolam HCl 5 MG/5 ML VIAL IVP PRN ×2 (11:30→11:35)
[2016-12-06] MEDS: Heparin 25,000 UNIT/500 ML D5W 25,000 UNIT/500 ML MLS IVC SCH (15:03)
--- NOTE | 2016-12-06 15:48 | Internal Med Progress Note ---
Date of Encounter: 12/06/16 Time of Encounter: 10:30 - Assessment and plan (1) CVA (cerebral vascular accident) Current Visit: Yes Status: Acute Assessment and plan: Patient presents with acute CVA. MRI reveals multiple areas of infarcts. Case discussed with neurology. Repeat transthoracic echocardiogram was not of good quality. Cardiology evaluated the patient and performed a transesophageal echocardiogram today. Appreciate input and assistance. Continue aspirin, statin. Transesophageal echocardiogram results reviewed-no cardiac source of embolus identified. Intravenous heparin will be discontinued. Patient will be placed on something is evident. Patient evaluated by physical therapy and rehabilitation placement has been recommended. Patient will not have a bed available until tomorrow. Patient will be discharged to rehabilitation tomorrow when bed is available. Patient is high risk due to acute stroke and risk of recurrent stroke. She is also at risk of falls and needs rehabilitation placement prior to being discharged home. Qualifiers: CVA mechanism: embolism Precerebral and cerebral artery: middle cerebral artery Laterality of affected vessel: right Qualified Code(s): I63.411 - Cerebral infarction due to embolism of right middle cerebral artery (2) Tobacco abuse Current Visit: Yes Status: Chronic Assessment and plan: Patient counseled regarding cessation. Continue nicotine patch. (3) HTN (hypertension) Current Visit: Yes Status: Chronic Assessment and plan: Blood pressure is better controlled today. Continue to hold antihypertensive medications. Qualifiers: Hypertension type: essential hypertension Qualified Code(s): I10 - Essential (primary) hypertension (4) Bipolar 1 disorder Current Visit: No Status: Chronic - Subjective Interval history: Patient states that the weakness in her left thumb is better. However, she continues to report weakness in her left leg. She states that she has been able to consume her modified diet without any problems. She has no episodes of choking. The patient wants to be home by next Friday when her daughter is getting . She denies any chest pain, palpitations. The patient underwent transesophageal echocardiogram today. - Constitutional Vitals: Temp Pulse Resp BP Pulse Ox 98.4 F 54 16 128/73 94 12/06/16 10:56 12/06/16 10:56 12/06/16 10:56 12/06/16 10:56 12/06/16 10:56 General appearance: Present: A&O X 3, answers questions appropriately Exam: Gen.: Lying in bed. No acute distress. Right facial deviation Chest: Clear to auscultation bilaterally. No adventitious sounds present. CVS: First and second heart sounds present. No murmurs, rubs or gallops. Abdomen: Soft, nontender, obese. Bowel sounds present. Internal Medicine: Result - Labs CBC & Chem 7: 12/05/16 05:33 12/05/16 05:33 - ABG Interpretation ABG results: PT/INR, D-dimer PT 11.4 Seconds (9.4-12.1) 12/04/16 21:10 - Impressions Case discussed with neurology. MRI personally reviewed and reviewed with neurology. Patient has multiple infarcts bilaterally in the frontal, parietal and occipital lobes and the right thalamus. Consult Discharge Plan - Plan Referrals: Alton Sellers MD [Primary Care Provider] - 12/13/16 10:00 am
--- NOTE | 2016-12-06 16:15 | Event Note ---
Date of Encounter: 12/06/16 Time of Encounter: 14:12 - Cardiology Event Note TOÑO completed. No cardiac source of emboli identified. EF 60%. No atrial fibrillation seen on telemetry during hospital stay. 48 Hour Holter monitor ordered to be placed at discharge. Out- patient f/u with our estate and trust tax principal will be made for loop recorder. Please call with questions.
--- NOTE | 2016-12-06 17:24 | Neurology Progress Note ---
Date of Encounter: 12/06/16 Time of Encounter: 17:21 Assessment and Plan (1) CVA (cerebral vascular accident) Current Visit: Yes Status: Acute Qualifiers: CVA mechanism: embolism Precerebral and cerebral artery: middle cerebral artery Laterality of affected vessel: right Qualified Code(s): I63.411 - Cerebral infarction due to embolism of right middle cerebral artery Subjective Principal diagnosis: CVA Interval history: Patient seen and examined, she is feeling stable, no new neurological complaints. Left side arm is still weak but has since stabilized. No speech difficulty. No visual difficulty. No mental status changes. TOÑO completed and showed no source of emboli noted. Will discontinue Haparin drip and continue patient on Aspirin 325mg daily. Patient to get PT. Follow up in neurology clinic in 2-3 weeks after discharge. Objective - Constitutional Vitals: Temp Pulse Resp BP Pulse Ox 98.2 F 63 16 134/75 98 12/06/16 15:56 12/06/16 15:56 12/06/16 15:56 12/06/16 15:56 12/06/16 15:56 - Neurological Exam Sensorimotor examination: Present: other (Grossly intact) Motor Examination: Present: other (Mild weakness to the left arm and leg) Motor examination - left side: 4/5: deltoids, biceps, triceps, wrist flexion, wrist extension, hip flexors, applied research director, quadriceps, tibialis Anterior, toe extension (EHL), plantarflexion Sensation intact: Present: other (Grossly intact) Posture: Present: other (None) Reflex and gait examination: other (Reflexes reduced to left side both upper and lower extremites) Mental Status Examination: Present: awake, alert, oriented to person, oriented to place, oriented to time, follows commands appropriately, answers questions appropriately, no agnosia, no aphasia, no aproxia Results - Laboratory Findings CBC and BMP: 12/05/16 05:33 12/05/16 05:33 Abnormal lab findings: Abnormal lab results APTT 70.3 Seconds (26.0-36.0) H 12/06/16 03:38 Heparin Anti-Xa, Unfract 0.93 IU/mL (0.30-0.70) H 12/05/16 12:20 POC Glucose 107 (58-89) H 12/04/16 09:29 Triglycerides 175 mg/dL (< 150) H 12/05/16 05:33 Cholesterol 214 mg/dL (< 200) H 12/05/16 05:33 LDL Cholesterol, Calc 149 mg/dL (0-99) H 12/05/16 05:33 VLDL Cholesterol, Calc 35 mg/dL (< 31) H 12/05/16 05:33 HDL Cholesterol 30 mg/dL (40-59) L 12/05/16 05:33 Cholesterol/HDL Ratio 7.1 (0-4.9) H 12/05/16 05:33 Consult Discharge Plan - Plan Referrals: Alton Sellers MD [Primary Care Provider] - 12/13/16 10:00 am
[2016-12-06] MEDS: lamoTRIgine 100 MG TABLET PO SCH (21:29)
[2016-12-06] MEDS: *HR* Heparin 5,000 UNIT/ML VIAL SQ SCH (21:29)
[2016-12-07] MEDS: *HR* HYDROcodone/Acet 5/325 mg TABLET PO PRN ×2 (00:23→08:33)
[2016-12-07 06:21] LABS: Basophils % 0.7 %; Eosinophils # 0.2 K/mcL (0.0-0.6); Eosinophils % 2.6 %; Hematocrit 43.1 % (35.3-44.9); Hemoglobin 14.2 g/dL (11.5-15.4); Immature Granulocytes % 0.3 % (0-4); Lymphocytes # 2.5 K/mcL (0.6-4.6); Lymphocytes % 41.3 %; Mean Corpuscular HGB Conc 32.9 g/dL (31.6-35.5); Mean Corpuscular Hemoglobin 31.6 pg (28.0-33.3); Mean Platelet Volume 10.3 fL (9.4-12.4); Monocytes # 0.4 K/mcL (0.0-1.3); Platelet Count 243 K/mcL (140-400); Red Blood Count 4.49 M/mcL (3.82-4.97); Red Cell Distribution Width 11.8 % (11.5-14.5); Segmented Neutrophils % 49.1 %
[2016-12-07 06:40] LABS: BUN/Creatinine Ratio 9 (6-26); Blood Urea Nitrogen 8 mg/dL (7-20); Calcium 9.5 mg/dL (8.6-10.8); Carbon Dioxide 31 mEq/L (19-29); Chloride 103 mEq/L (98-109); Glucose 88 mg/dL (70-99); Osmolality,Calculated 288 (280-300); Potassium 4.1 mEq/L (3.5-4.5); Sodium 140 mEq/L (136-145); eGFR For African Americans > 60 (> 60); eGFR For Non-African Americans > 60 (> 60)
[2016-12-07] MEDS: *HR* Heparin 5,000 UNIT/ML VIAL SQ SCH (06:44)
[2016-12-07 07:34] VITALS: BP 139/86
[2016-12-07] MEDS: Nicotine 21 MG PATCH.TD24 TD SCH (08:25)
[2016-12-07] MEDS: Aspirin 325 MG TABLET PO SCH (08:25)
[2016-12-07] MEDS: lamoTRIgine 25 MG TABLET PO SCH (08:26)
--- NOTE | 2016-12-07 09:39 | Discharge Summary ---
Date of Encounter: 12/07/16 Time of Encounter: 08:00 - Discharge Diagnosis (1) CVA (cerebral vascular accident) Priority: Primary Status: Acute Qualifiers: CVA mechanism: embolism Precerebral and cerebral artery: middle cerebral artery Laterality of affected vessel: right Qualified Code(s): I63.411 - Cerebral infarction due to embolism of right middle cerebral artery (2) Tobacco abuse Priority: Secondary Status: Chronic (3) HTN (hypertension) Priority: Secondary Status: Chronic Qualifiers: Hypertension type: essential hypertension Qualified Code(s): I10 - Essential (primary) hypertension (4) Bipolar 1 disorder Priority: Secondary Status: Chronic - Discharge Medications Prescriptions: Aspirin Enteric Coated [Aspirin EC] 325 mg PO DAILY #90 tablet. Atorvastatin Calcium [Lipitor] 80 mg PO HS #90 tab Nicotine Patch [Nicoderm] 21 mg TD DAILY #10 Home Medications: Levothyroxine Sodium [Levo-T] 175 mcg PO DAILY 12/04/16 [History] Losartan Potassium [Cozaar] 100 mg PO DAILY 12/04/16 [History] lamoTRIgine [Lamictal] 100 mg PO QAM 12/04/16 [History] lamoTRIgine [Lamictal] 200 mg PO HS 12/04/16 [History] traZODone [TraZODone] 50 mg PO HS 12/04/16 [History] Aspirin Enteric Coated [Aspirin EC] 325 mg PO DAILY #90 tablet. 12/07/16 [Rx] Atorvastatin Calcium [Lipitor] 80 mg PO HS #90 tab 12/07/16 [Rx] FLUoxetine HCl [Prozac] 30 mg PO BID 12/07/16 [History] Nicotine Patch [Nicoderm] 21 mg TD DAILY #10 12/07/16 [Rx] Allergies/Adverse Reactions: Allergies No Known Allergies Allergy (Verified 11/14/16 11:01) Procedures/tests Complete & Pending: Procedures Performed prior 72 hours Category Date Time Status MR angio head wo con [MR] Routine MRI 12/04/16 12:17 Completed MR angio neck wo/w con [MR] Routine MRI 12/04/16 12:17 Completed MR head/brain wo con [MR] Routine MRI 12/04/16 12:17 Completed ECG 12 lead ECG [ECG] Routine Y 12/04/16 09:32 Completed ECG 48 holter monitor setup [ECG] Routine Y 12/06/16 16:17 Ordered EV TOÑO transesophageal echo Routine Y 12/06/16 07:47 Completed EV carotid duplex imaging BI Routine Y 12/04/16 13:02 Completed EV echocardiogram Routine Y 12/04/16 14:56 Completed EV echocardiogram Routine Y 12/05/16 11:26 Completed - Notes to Outpatient Provider 1. Cardiology will call patient for outpatient follow up with architecture drafter for loop recorder set up Date of admission: 12/04/16 11:54 Primary care physician: Alton Sellers MD Consults: 12/04/16 12:14 Consult to Occupational Therapy [CONS] Routine Comment: Evaluate, develop and implement POC Reason for Consult: left sided weakness Consult to Physical Therapy [CONS] Routine Comment: Evaluate, develop and implement POC Reason for Consult: L sided weakness Consult to Nutrition Specialist [CONS] Routine Reason for SW Consult: discharge planning Consult to Speech Therapy [CONS] Routine Comment: Evaluate, develop and implement POC Reason for Consult: l sided facial droop Time Notified: 12:15 Call Completed: Yes 12/04/16 12:23 Consult to Neurology [CONS] Routine Consulting Provider: [facility] Reason for Consult: L sided weakness Time Notified: 12:24 Call Completed: Yes 12/05/16 11:27 Consult to Cardiology [CONS] Routine Comment: Consulting Provider: [facility] Reason for Consult: Multivessel CVA concerning for cardiac shower emboli; May need TOÑO Call Completed: Yes Discharging clinician: Jamey Membreno Anticipated date of discharge: 12/07/16 - Patient Status Disposition: Transfer Inpatient Rehab Fac Condition: Good Functional capacity at discharge: uses cane/walker Overall status at discharge: patient is not back to baseline - Discharge Instructions Follow Up With: Jacquelyn Mendoza MD [Partnered Physician] - (2-3 weeks) Alton Sellers MD [Primary Care Provider] - 12/13/16 10:00 am - Diet and Activity Activity: as per physical therapy, increase activity as tolerated Diet: low fat, low cholesterol, low salt diet Hospital course: Ms. Varela is a 56 year old female with a history of chronic tobacco abuse, hypertension who presented to the emergency room due to new onset of left-sided facial droop and left-sided weakness in the upper and lower extremities that began 1 day prior to admission associated with frequent falls and gait instability. She was diagnosed with an acute CVA after MRI revealed acute infarcts in the right thalamus, right basal ganglia. Patient was admitted to the hospital. Neurology was consulted. Due to the multiple arterial involvement resulting in the stroke, there was suspicion for embolic phenomenon. Her regular transthoracic echocardiogram revealed preserved ejection fraction but did not reveal any source of emboli. Neurology recommended to the patient have a transesophageal echocardiogram performed. Cardiology was consulted. The patient underwent transesophageal echocardiogram. However, this did not reveal any atrial appendage thrombus. Hence, the patient's intravenous heparin was discontinued. The patient has been placed on high-dose aspirin and high-dose statin for acute CVA. She was counseled extensively regarding the need for smoking cessation. Her bipolar disorder remained stable throughout the hospital stay. As a transesophageal echocardiogram is negative, cardiology has ordered the patient to get a 48-hour outpatient Holter monitoring on discharge. Further review of the Holter monitor, the patient may get a loop recorder set up as an outpatient from cardiology. The patient was evaluated by physical therapy and outpatient therapy and recommended to go to rehabilitation. The patient currently has a bed set up. Hence, she is being discharged to rehabilitation today. - Time Spent with Patient Total time spent providing and/or coordinating discharge services: Greater than 30 minutes (40) - Constitutional Vitals: Temp Pulse Resp BP Pulse Ox 97.6 F 61 16 139/86 97 12/07/16 07:00 12/07/16 07:00 12/07/16 07:00 12/07/16 07:00 12/07/16 07:00 General appearance: Present: A&O X 3, answers questions appropriately Exam: Gen.: Lying in bed. No acute distress. Chest: Clear to auscultation bilaterally. No adventitious sounds present. CVS: First and second heart sounds present. No murmurs, rubs or gallops.
--- NOTE | 2016-12-07 11:52 | Physician Discharge Referral ---
ExtendedCare Referral Info Transfer To: REPLACED BY [facility] Provider in Charge: Dr. Jamey Membreno Provider in Charge after Transfer: PCP Institutional Level of Care: Skilled - Diagnosis (1) CVA (cerebral vascular accident) Priority: Primary Status: Acute (2) Tobacco abuse Priority: Secondary Status: Chronic (3) HTN (hypertension) Priority: Secondary Status: Chronic (4) Bipolar 1 disorder Priority: Secondary Status: Chronic Expected Duration of Placement: 4 days Prognosis: Good Aware of Diagnosis: Patient, Family Aware of Prognosis: Patient, Family - Transfer Medications Prescriptions: Aspirin Enteric Coated [Aspirin EC] 325 mg PO DAILY #90 tablet. Atorvastatin Calcium [Lipitor] 80 mg PO HS #90 tab Nicotine Patch [Nicoderm] 21 mg TD DAILY #10 Home Medications: Levothyroxine Sodium [Levo-T] 175 mcg PO DAILY 12/04/16 [History] Losartan Potassium [Cozaar] 100 mg PO DAILY 12/04/16 [History] lamoTRIgine [Lamictal] 100 mg PO QAM 12/04/16 [History] lamoTRIgine [Lamictal] 200 mg PO HS 12/04/16 [History] traZODone [TraZODone] 50 mg PO HS 12/04/16 [History] Aspirin Enteric Coated [Aspirin EC] 325 mg PO DAILY #90 tablet. 12/07/16 [Rx] Atorvastatin Calcium [Lipitor] 80 mg PO HS #90 tab 12/07/16 [Rx] FLUoxetine HCl [Prozac] 30 mg PO BID 12/07/16 [History] Nicotine Patch [Nicoderm] 21 mg TD DAILY #10 12/07/16 [Rx] Allergies/Adverse Reactions: Allergies No Known Allergies Allergy (Verified 11/14/16 11:01) - Respiratory Orders Smoking Cessation: Smoking cessation has been advised. For more information, call the [place] Tobacco Quit Line at 3-272-POOG-NOW. - Ancillary Orders May use pressure relief devices daily prn, May go on ALEJANDRO w/family/respon libertarian w /meds at nurse discretion PRN - Advance Directives Code Status: Full Code - Mobility Orders Chair, Ambulate - Rehabiliation Orders Rehab Potential: Good Rehab Orders: Sternal Precautions, ROM Exercises, Evaluation for Physical Therapy, Evaluation for Occupational Therapy, Evaluation for Speech Therapy - Treatments Skin tear care topically daily PRN per policy, May check for fecal impaction rectally daily PRN - Diet Orders No Added Salt (ZAYNAB), Cardiac CERTIFICATION: I certify that the transfer of the above named patient to an Extended Care Facility is necessary for the continuing treatment of the diagnosis listed. The above information is true and accurate reflection of patient's current condition. Confidential - Redisclosure prohibited without a patient's written consent.
== END 2016-12-07 12:36 | DRG 65 ==
LOC: EMEROO 09:24 → 2NENU 09:24
PROVIDERS: ADMIT Internal Medicine; ATTEND Internal Medicine Sleep Medicine